=== PATIENT | female | born 1970 | race Caucasian/White ===

== ENCOUNTER 2020-12-14 11:56 | Inpatient (IN) | payer BC ==
[2020-12-14] MEDS ORDERED: Diltiazem 125 MG/25 ML ONE (12:05)
[2020-12-14 12:29] LABS: Mean Corpuscular HGB CONC 33.5 g/dL (32.0-36.0); Mean Corpuscular Hemoglobin 29.6 pg (27.0-31.0); Mean Corpuscular Volume 88.4 fL (78.0-98.0); Mean Platelet Volume 8.1 fL (7.4-10.4); Platelet Count 307 thou/uL (130-400); RBC Distribution Width 11.9 % (11.5-14.5); Red Blood Cell (RBC) Count 4.72 mill/uL (4.20-5.40)
[2020-12-14 12:47] LABS: ALT (SGPT) 49 U/L (8-55); AST (SGOT) 33 U/L (5-34); Albumin 4.4 g/dL (3.5-5.0); Alkaline Phosphatase 109 U/L (40-110); Anion Gap 16 mmol/L (10-20); BUN (Urea Nitrogen) 11 mg/dL (9.8-20.1); Bilirubin, Total 0.3 mg/dL (0.2-1.2); Calc. Creatinine Clearance 0 mL/min (70-130); Calcium 9.9 mg/dL (7.8-10.44); Carbon Dioxide 24 mmol/L (22-29); Chloride 103 mmol/L (98-107); Globulin 3.4 g/dL (2.4-3.5); Glucose 96 mg/dL (70-105); Lipase 26 U/L (8-78); Protein, Total 7.8 g/dL (6.0-8.3); Sodium 139 mmol/L (136-145)
[2020-12-14 12:51] LABS: Band 1 % (5-11); Eosinophils 5 % (0-10); Lymphocytes 44 % (21-51); MDiff Complete? YES; Monocytes 11 % (0-10); Neutrophil 36 % (42-75); Platelet Morphology Comment Appears Adequate; RBC Morphology Normal; Reactive Lymphocytes 1 % (0-10)
[2020-12-14 13:11] LABS: Bilirubin Negative (Negative); Blood, Urine Negative (Negative); Clarity Clear (Clear); Glucose, Urine (Dipstick) Normal (Negative); Ketone, Urine Negative (Negative); Leukocyte Negative Leu/uL (Negative); Nitrite Negative (Negative); Protein, Urine (Dipstick) Negative (Neg-Trace); Specific Gravity, Urine 1.003 (1.002-1.036); Urobilinogen Normal mg/dL (Less than 2)
[2020-12-14 16:40] LABS: Troponin I Less than 0.010 ng/mL (< 0.028)
[2020-12-14] MEDS ORDERED: Ondansetron PF 4 MG/2 ML Vial IVP PRN (17:08)
[2020-12-14] MEDS ORDERED: Acetaminophen 325 MG TAB PO PRN (17:08)
[2020-12-14] MEDS ORDERED: Diltiazem 125 MG in Sodium Chloride 0.9% 100 ML IVPB SCH (17:30)
[2020-12-14 20:43] VITALS: BMI 31.6
[2020-12-14 21:47] LABS: SARS-CoV-2 PCR by NAA Not Detected (NotDetected)
[2020-12-15 05:21] LABS: Hemoglobin 13.5 g/dL (12.0-16.0); Mean Corpuscular HGB CONC 33.3 g/dL (32.0-36.0); Mean Corpuscular Hemoglobin 29.3 pg (27.0-31.0); Mean Platelet Volume 8.2 fL (7.4-10.4); Platelet Count 290 thou/uL (130-400); RBC Distribution Width 12.1 % (11.5-14.5); White Blood Cell (WBC) Count 7.6 thou/uL (4.8-10.8)
[2020-12-15 05:25] LABS: Anion Gap 14 mmol/L (10-20); BUN (Urea Nitrogen) 13 mg/dL (9.8-20.1); Calc. Creatinine Clearance 126 mL/min (70-130); Calcium 8.8 mg/dL (7.8-10.44); Carbon Dioxide 21 mmol/L (22-29); Chloride 108 mmol/L (98-107); Glucose 100 mg/dL (70-105); Potassium 3.9 mmol/L (3.5-5.1); Sodium 139 mmol/L (136-145)
[2020-12-15 05:50] LABS: Band 3 % (5-11); Eosinophils 6 % (0-10); Lymphocytes 48 % (21-51); MDiff Complete? YES; Monocytes 7 % (0-10); Neutrophil 36 % (42-75)
[2020-12-15] MEDS ORDERED: Non-Formulary Item 1 EACH (Mecobalamin [B12 Active] 1,000 MCG Tab.Chew) PO SCH (09:00)
[2020-12-15] MEDS ORDERED: Enoxaparin Sodium 40 MG/0.4 ML SYRINGE SC SCH (09:00)
[2020-12-15] MEDS ORDERED: Non-Formulary Item 1 EACH (Cholecalciferol (Vitamin D3) [Vitamin D] 1000 UNIT Capsule) PO SCH ×2 (09:00)
[2020-12-15] MEDS ORDERED: Non-Formulary Item 1 EACH (Multivitamin [Multivitamins] 1 TABLET Tablet) PO SCH (09:00)
[2020-12-15] MEDS: Multivit, Therapeutic 1 TAB PO SCH (09:33)
[2020-12-15] MEDS: Cyanocobalamin (Vitamin B-12) 1,000 MCG TAB PO SCH (09:33)
[2020-12-15] MEDS: Cholecalciferol 1,000 UNITS (25 MCG) TAB PO SCH (09:33)
[2020-12-15] MEDS ORDERED: metFORMIN 500 MG TAB PO SCH ×2 (10:30→17:00)
[2020-12-15] MEDS ORDERED: Levothyroxine Sodium 75 MCG TAB PO SCH ×2 (10:30→21:00)
[2020-12-15] MEDS ORDERED: ESTROGENS CONJUGATED 1.25 MG PO SCH (21:00)
[2020-12-15] MEDS ORDERED: Non-Formulary Item 1 EACH (Losartan Potassium [Losartan Potassium] 100 MG Tablet) PO SCH (21:00)
[2020-12-15] MEDS ORDERED: Non-Formulary Item 1 EACH (Levothyroxine Sodium [Levothyroxine] 75 MCG Capsule) PO SCH (21:00)
[2020-12-15] MEDS ORDERED: Losartan 25 MG TAB PO SCH (21:00)
[2020-12-15] MEDS: Apixaban 5 MG TAB PO SCH (21:03)
[2020-12-16] MEDS: Cholecalciferol 1,000 UNITS (25 MCG) TAB PO SCH (09:10)
[2020-12-16] MEDS: Apixaban 5 MG TAB PO SCH (09:10)
[2020-12-16] MEDS: Multivit, Therapeutic 1 TAB PO SCH (09:10)
[2020-12-16] MEDS: Cyanocobalamin (Vitamin B-12) 1,000 MCG TAB PO SCH (09:10)
[2020-12-16 09:59] VITALS: BP 112/69; TEMP 97.8
== END 2020-12-16 11:54 | disposition home or self-care (01) | DRG 310 ==
LOC: ERS 11:56 → ERHOLD 15:21 → 2NO 18:58
PROVIDERS: ADMIT Internal Medicine; ATTEND Internal Medicine
DX: I48.91 Unspecified atrial fibrillation (principal); Z20.822 Contact with and (suspected) exposure to COVID-19; I10 Essential (primary) hypertension; E03.9 Hypothyroidism, unspecified; G43.909 Migraine, unspecified, not intractable, without status migrainosus; R73.03 Prediabetes; E66.01 Morbid (severe) obesity due to excess calories; Z88.2 Allergy status to sulfonamides; Z88.8 Allergy status to other drugs, medicaments and biological substances; Z86.018 Personal history of other benign neoplasm; Z82.49 Family history of ischemic heart disease and other diseases of the circulatory system; Z90.710 Acquired absence of both cervix and uterus; Z79.84 Long term (current) use of oral hypoglycemic drugs; Z68.31 Body mass index [BMI] 31.0-31.9, adult
CPT/HCPCS: 36415; 36416; 71045; 80048; 80053; 81003; 83690; 83735; 83880; 84443; 84484; 85025; 85379; 93005; 93010; 93306; 96365; 96366; 96376; J1650; J3490; U0003; U0005

== ENCOUNTER 2024-02-15 14:45 | Outpatient (CLI) | payer BC | END 2024-02-15 14:46 | disposition home or self-care (01) | LOC: BICMAMMO 14:45 | PROVIDERS: ATTEND Family Medicine Sports Medicine | DX: Z12.31 Encounter for screening mammogram for malignant neoplasm of breast (principal); Z98.890 Other specified postprocedural states | CPT/HCPCS: 77063; 77067 ==